=== PATIENT | female | born 1975 | race African-American/Black ===

== ENCOUNTER → 2020-09-01 09:34 | Outpatient (BNVA) | payer OTHER, SELFPAY | PROVIDERS: PCP Internal Medicine; Referring Provider Internal Medicine; Visit Provider Dietitian, Registered | DX: Z76.89 Persons encountering health services in other specified circumstances (principal) ==

== ENCOUNTER → 2020-12-25 14:57 | Outpatient (BNVA) | payer OTHER, SELFPAY | PROVIDERS: PCP Internal Medicine; Visit Provider Surgery ==

== ENCOUNTER → 2021-03-29 15:03 | Outpatient (BNVA) | payer OTHER, SELFPAY | PROVIDERS: PCP Internal Medicine; Visit Provider Surgery ==

== ENCOUNTER → 2021-08-03 13:03 | Outpatient (BNVA) | payer OTHER, SELFPAY | PROVIDERS: PCP Internal Medicine; Referring Provider Internal Medicine; Visit Provider Surgery ==

== ENCOUNTER → 2022-03-24 13:50 | Outpatient (BNVA) | payer OTHER, SELFPAY | PROVIDERS: PCP Internal Medicine; Visit Provider Internal Medicine | DX: Z01.810 Encounter for preprocedural cardiovascular examination (principal); I10 Essential (primary) hypertension; Z98.890 Other specified postprocedural states | CPT/HCPCS: 93005 ==

== ENCOUNTER 2022-04-27 14:54 | Outpatient (REF) | payer OTHER, SELFPAY ==
[2022-04-27 15:39] LABS: Anion Gap 10 (12-20); Blood Urea Nitrogen 8 mg/dL (9-16); Calcium 9.3 mg/dL (8.4-10.2); Carbon Dioxide 21 mmol/L (22-29); Chloride 108 mmol/L (96-108); Estimated Glomerular Filt Rate > 60; Glucose Random 115 mg/dL (60-115); Potassium 4.3 mmol/L (3.3-5.1); Sodium 135 mmol/L (135-145)
== END 2022-04-27 14:55 | disposition home or self-care (01) ==
LOC: HO.LAB 14:54
PROVIDERS: Visit Provider Internal Medicine
DX: Z98.890 Other specified postprocedural states (principal)
CPT/HCPCS: 36415; 80048

== ENCOUNTER 2022-04-28 15:28 | Outpatient (REF) | payer OTHER, SELFPAY ==
--- NOTE | ~2022-04-28 | CT_ITS ---
EXAMINATION: CT ANGIOGRAM CHEST CLINICAL INFORMATION: Status post aortic dissection repair. COMPARISON: CT angiogram chest 01/28/2020. TECHNIQUE: After a noncontrast timing run, multiple axial images were obtained through the chest after the administration of 70 mL of Omnipaque 350 intravenous contrast. Additional 2-D coronal and sagittal reformatted images and axial 3-D maximum intensity projection MIP images are generated on the CT workstation. . This CT examination was performed using dose optimization techniques as appropriate, variously including the following: *Automated exposure control *Adjustment of mA and/or kV according to patient size (this includes techniques or standardized protocols for targeted exams where dose is matched to indication/reason for exam; i.e. extremities or head) *Use of iterative reconstruction technique DLP: 120 mGy-cm FINDINGS: VASCULAR FINDINGS: Again seen is a repair of the ascending aorta with residual aortic dissection beginning at the level of the left subclavian. The dissection extends into the left subclavian for a few millimeters with no flow disturbance. The innominate and left carotid have been reimplanted on the ascending aorta and are all widely patent. In the descending thoracic aorta, the diameter has increased slightly from 2.6 to 2.9 cm as measured at the level of the superior pulmonary vein on the left (compare 8:229 with previous 5:197). When comparison is made to the prior study from 01/28/2020, no other interval change has occurred. The dissection extends into the upper abdominal aorta which was included on the exam. None of the abdominal branches are included on this study. NONVASCULAR FINDINGS: Lungs: The lungs are clear with no evidence of inflammation or nodules. Mediastinum: No mediastinal hemorrhage or adenopathy is seen. Pleura: There is no pleural effusion. No pleural mass or thickening. Axilla: No lymphadenopathy. Upper Abdomen: Unremarkable. Osseous Structures: Unremarkable. CT/CT angio chest aorta IMPRESSION: Repair of ascending aorta with reimplantation of innominate and left carotid. Great vessels all patent. 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 Fleischner guidelines were followed.
[2022-04-28] MEDS: iohexoL 350 MG/ML 100 ML INFUS..BTL IV (16:42)
== END 2022-04-28 15:29 | disposition home or self-care (01) ==
LOC: HO.CT 15:28
PROVIDERS: Visit Provider Internal Medicine
DX: Z98.890 Other specified postprocedural states (principal)
CPT/HCPCS: 71275; Q9967

== ENCOUNTER → 2022-05-04 10:24 | Outpatient (REF) | payer OTHER, SELFPAY ==
--- NOTE | 2022-05-04 10:26 | CA_ITS ---
Transthoracic Echocardiogram Patient (Last, First, Middle): Rowan Callahan, Gender: Female Date of : 1975 Age: 46 Procedure Date: 05/04/2022 Procedure Type: Transthoracic Echocardiogram Location: OP Height: 165.1 cm Weight: 68.49 kg BSA: 1.76 m2 Heart Rate: 54 bpm BP: 132 / 70 mmHg [place] [employer]: HIWOT Referring MD: Chivo Villalobos MD Senior Planning Manager: Anthony Suarez MD Symptoms: [id number] - Other specified postprocedural states Study Quality: Adequate ECG Rhythm: Bradycardia Conclusions: - 1. Normal LV systolic function with normal diastolic filling pattern 2. Trivial aortic regurgitation 3. Normal size ascending aorta as well as sinus of Valsalva are an arch of the aorta 4. No gross pericardial effusion 5. Normal RV systolic pressure Findings Left Ventricle Normal left ventricular size, thickness, and systolic function. The visually estimated ejection fraction is between 55-60%. There is paradoxical septal motion consistent with post-operative status. Spectral Doppler is indicative of a normal filling pattern. Right Ventricle Normal right ventricular cavity size. There is low normal right ventricular systolic function. Atria The left atrium is normal in size. There is lipomatous hypertrophy of the interatrial septum. Interatrial shunt cannot be excluded. The right atrium is normal in size. Aortic Valve The aortic valve structure and function is likely normal. There is no aortic valve stenosis. There is trace (trivial) aortic valve regurgitation. Mitral Valve Likely normal mitral valve structure and function. There is no mitral valve regurgitation. There is no mitral valve stenosis. Pulmonic Valve The pulmonic valve was not well visualized. Tricuspid Valve Likely normal tricuspid valve structure and function. There is trace tricuspid valve regurgitation. The right ventricular systolic pressure is normal. The right ventricular systolic pressure is 19 mmHg. Normal right atrial pressure. There is no evidence of pulmonary hypertension. Great Vessels All visible segments of the aorta are normal in size. The pulmonary artery was not well visualized. Venous The inferior vena cava is normal in size and collapses greater than 50% with inspiration. Pericardium/Pleural There is no evidence of pericardial effusion. Prior Study Comparison No significant change compared to prior study dated: 01/28/2020. Measurements 2D Linear Measurements IVSd: 0.90 0.6-0.9/0.6-1.0 cm LVIDd: 4.72 3.9-5.3/4.2-5.9 cm LVIDd Index: 2.68 2.4-3.2/2.2-3.1 cm/m2 LVIDs: 3.05 2.0-3.6 cm LVPWd: 0.87 0.7-1.1 cm LA Diam: 3.40 2.7-3.8/3.0-4.0 cm LAIDs Index: 1.93 1.5-2.3 cm/m2 LV Mass: 174.80 67-162/88-224 g LV Mass Index: 99.32 43-95/49-115 g/m2 LVOT Diam: 2.10 3.0+(-)1.3 cm 2D Systolic Function EF 4C: 53.10 >55% EF 2C: 53.40 >55% Mitral Valve MV Pk E: 0.88 MV PK A: 0.54 MV Decel Time: 186.00 E/A: 1.60 E'Lateral: 11.40 E'Medial: 9.46 E/E' Med: 9.30 E/E' Lat: 7.70 PHT: 54.00 MVA PHT: 4.07 Decel Coal: 4.73 Aortic Valve AoV Pk Armando: 1.11 AoV Mn Armando: 0.68 AoV VTI: 0.22 AoV Pk Grad: 5.00 Aov Mn Grad: 2.00 JAVIER Cont.VTI: 3.59 LVOT LVOT Pk Armando: 0.92 LVOT Mn Armando: 0.63 LVOT VTI: 0.23 LVOT Pk Grad: 3.00 LVOT Mn Grad: 2.00 LVOT Diam: 2.10 LVOT Area: 3.46 Diastolic Function MV Pk E: 0.88 MV Pk A: 0.54 E/A: 1.60 E'Medial: 9.46 E/E' Med: 9.30 E' Laterial: 11.40 E/E' Lat: 7.70 Right Ventricle TAPSE (mm): 16.70 TVS' Armando: 8.16 Tricuspid Valve TR Pk Armando: 1.97 TR Pk Grad: 16.00 RA Press: 3.00 RVSP: 19.00 Great Vessels Aorta Sinus of Valsalva: 3.06 2.0-3.5 cm Ao Asc: 3.00 2.1-3.4 cm Ao Arch: 2.10 Ao Desc: 1.80 Abd Aorta: 2.23 Pulmonary Valve PV Pk Armando: 0.84 Peak PV Grad: 3.00 Updated in Other Vendor System with Status of Final Anthony Suarez MD electronically signed on 05/04/2022 3:07:13 PM with status of Final
== END ==
LOC: HO.CARD 10:24
PROVIDERS: PCP Internal Medicine; Visit Provider Internal Medicine
DX: R00.1 Bradycardia, unspecified (principal); Z98.890 Other specified postprocedural states
CPT/HCPCS: 93306